=== PATIENT | female | born 1945 | race Caucasian/White ===

== ENCOUNTER → 2021-02-26 | Outpatient (CLI) | payer MEDICARE ==
[~2021-02-26] MED LIST: INDOCIN 50 MG C50 MG PO; PERCOCET 5/325 T1 EA PO; PREDNISONE20 MG PO
== END ==
LOC: MAMO 10:40
DX: Z12.31 Encounter for screening mammogram for malignant neoplasm of breast (principal)
CPT/HCPCS: 77063; 77067

== ENCOUNTER 2021-07-20 03:11 | Emergency (ER) | payer MEDICARE ==
[2021-07-20 03:44] LABS: HEMOGLOBIN 12.7 gm/dl (12.3-15.3); RED BLOOD COUNT 4.42 M/UL (4.00-5.10)
[2021-07-20 04:30] LABS: BUN/CREATININE RATIO 21 (0-10)
== END 2021-07-20 04:27 | disposition left against medical advice (07) ==
LOC: ER1 03:11
PROVIDERS: Physician Assistant
DX: M54.9 Dorsalgia, unspecified (principal); Z85.3 Personal history of malignant neoplasm of breast
CPT/HCPCS: 80053; 82550; 82553; 84484; 85025; 85610; 93005; 96374; 96375; 99283; J2270; J2405

== ENCOUNTER → 2021-07-24 | Outpatient (CLI) | payer MEDICARE | LOC: KOH-I 10:37 | DX: M54.9 Dorsalgia, unspecified (principal); M47.814 Spondylosis without myelopathy or radiculopathy, thoracic region; M47.816 Spondylosis without myelopathy or radiculopathy, lumbar region | CPT/HCPCS: 72070; 72100 ==